=== PATIENT | male | born 1950 | race Caucasian/White ===

== ENCOUNTER 2017-03-31 11:58 | Emergency (ER) | payer MEDICARE, OTHER ==
[~2017-03-31] VITALS: Ht 176.5 cm; Wt 90.0 kg
[~2017-03-31 11:58] MED LIST: ACTOS15 MG PO; ACTOS30 MG OR; ACTOS45 MG OR; ALLOPURINOL100 MG PO; ASPIRIN OR; BL ADULT ASA81 MG PO; CLINORIL200 MG OR; COLCHICINE0.6 MG PO; COREG12.5 MG OR; COREG25 MG PO; DOXYCYCL HYC100 MG OR; DOXYCYCL HYC100 MG PO; EC ASPIRIN325 MG PO; EQL ASPIRIN325 M1 OR; FERROUS SULF325 M3 PO; FLUARIX QUADRIV1 IN1 IM; FLUARIX QUADRIV1 INJ IM; FLUZONE SPLT1 M1 IM; GLIMEPIRIDE2 MG PO; GLIPIZIDE ER10 M1 PO; GLIPIZIDE10 M2 PO; GLUCOTROL XL5 MG PO; IMDUR30 MG PO; INDOMETHACIN50 MG PO; JANUVIA100 MG OR; JANUVIA100 MG PO; JANUVIA50 MG PO; LANTUS100 MG/ML SC; LEVEMIR SC; LEVEMIR1000 UNITS SC; LEVOTHYROXIN137 MCG PO; LEVOTHYROXIN25 MCG PO; LEVOTHYROXINE137 MCG PO; LISINOPRIL5 MG OR; MEDDOSEPAK OR; MEDDOSEPAK PO; NEXIUM40 M1 OR; PIOGLITAZONE HC15 MG PO; PLAVIX75 MG PO; PNEUMOVAX 23 IM; PREVNAR 13 IM; PROAIR HFA IN; SIMVASTATIN40 MG PO; SYNTHROID100 MCG OR; SYNTHROID125 MCG OR; SYNTHROID50 MCG OR; TEST STRIP XX; TOPROL XL OR; TOPROL XL100 MG OR; VIAGRA100 MG PO; VICODIN1 TA1 PO; ZITHROMAX500 MG PO; ZYLOPRIM100 MG PO; [UNRECOGNIZED DRUG - REMARK] SC; walker with seat
[2017-03-31 13:01] VITALS: BP 126/59
== END 2017-03-31 13:01 | disposition home or self-care (01) ==
LOC: ED 11:58
DX: S51.811A Laceration without foreign body of right forearm, initial encounter (principal); R58 Hemorrhage, not elsewhere classified; S80.212A Abrasion, left knee, initial encounter; Z79.02 Long term (current) use of antithrombotics/antiplatelets; Z79.82 Long term (current) use of aspirin; W17.89XA Other fall from one level to another, initial encounter; Y93.89 Activity, other specified; Y92.89 Other specified places as the place of occurrence of the external cause